=== PATIENT | female | born 1990 | race Caucasian/White ===

== ENCOUNTER 2023-08-16 10:14 | Emergency (ER) | payer BC ==
[~2023-08-16] VITALS: Ht 177.8 cm; Wt 81.6 kg
[2023-08-16 10:25] VITALS: BP 138/96; TEMP 98.3; O2SAT 98
[2023-08-16] MEDS ORDERED: ACETAMINOPHEN 325 MG TABLET PO ONE (10:30)
[2023-08-16] MEDS ORDERED: ACETAMINOPHEN ES 500 MG TABLET ONE (10:35)
[2023-08-16] MEDS ORDERED: TDAP [DIPH/PERTUSSIS/TET] 0.5 ML VIAL IM ONE (11:00)
[2023-08-16] MEDS ORDERED: TYL2T PO (12:39)
== END 2023-08-16 12:43 | disposition home or self-care (01) ==
LOC: ER 10:14
DX: S61.211A Laceration without foreign body of left index finger without damage to nail, initial encounter (principal); Z79.899 Other long term (current) drug therapy; Z60.2 Problems related to living alone; W22.8XXA Striking against or struck by other objects, initial encounter; Y93.89 Activity, other specified; Y92.89 Other specified places as the place of occurrence of the external cause; Y99.8 Other external cause status
CPT/HCPCS: 73130-TC